=== PATIENT | female | born 1985 | race Caucasian/White ===

== ENCOUNTER 2023-04-15 16:08 | Outpatient (CLI) | payer BC ==
[2023-04-15 17:24] VITALS: BP 127/84; PULSE 108; RESP 16; TEMP 97.6
--- NOTE | 2023-04-30 05:08 | P.MSEPDOC ---
Presenting Problems - Arrival Data Date of Arrival on Unit: 04/15/23 Time of Arrival on Unit: 16:10 Mode of Transport: Ambulatory - Complaint OB-Reason for Admission/Chief Complaint: NST Medical History - Information : 1 Para: 0 Number of Living Children: 0 - Gestational Age Gestational Age by ABIMBOLA (wks/days): 38 Weeks and 6 Days - History Complications: GDM Review of Systems - Review of Systems Constitutional: No problems Breast: No problems ENT: No problems Cardiovascular: No problems Respiratory: No problems Gastrointestinal: No problems Genitourinary: No problems Musculoskeletal: No problems Neurological: No problems Skin: No problems Vital Signs - Temperature Temperature: 97.6 F Temperature Source: Temporal Artery Scan - Pulse Right Sitting Brachial Pulse Rate: 108 Pulse Assessment Method: Automatic Cuff - Respirations Respiratory Rate: 16 Oxygen Delivery Method: Room Air - Blood Pressure Right Arm Sitting Blood Pressure: 127/84 Blood Pressure Mean: 98 Blood Pressure Source: Automatic Cuff Medical Screen Scoring - Assessment - Baby A Baseline FHR: 120 Heart Rate - NICHD Category: Category I (Normal) NST: Reactive Physician Notification - Physician Notified Physician Notified Date: 04/15/23 Physician Notified Time: 17:00 Physician: Tiffany Greene Order Received: Yes (discharge) Maternal Triage Index - Maternal Triage Index Presenting for scheduled procedure w/no complaint: No - Stat/Priority 1 Stat Priority 1: No - Urgent/Priority 2 Urgent Priority 2: No - Prompt/Priority 3 Prompt Priority 3: No - Non-Urgent/Priority 4 Non-Urgent Priority 4: No - Scheduled/Requesting Priority 5 Scheduled/Requesting Priority 5: Yes Criteria Met for Priority 5: NST per order Disposition - Disposition OB Disposition: Discharge to home Discharge Date: 04/15/23 Discharge Time: 17:05 I agree with the RN Medical Screening Exam: Yes Case reviewed; plan agreed upon as documented in EMR&OBIX.: Yes Diagnosis: GESTATIONAL DIABETES MELLITUS IN , DIET CONTROLLED
== END 2023-04-15 17:08 | disposition home or self-care (01) ==
LOC: FBPOP 16:08
PROVIDERS: ATTEND Obstetrics & Gynecology
DX: O24.410 Gestational diabetes mellitus in pregnancy, diet controlled (principal); Z3A.38 38 weeks gestation of pregnancy; Z91.09 Other allergy status, other than to drugs and biological substances; Z88.8 Allergy status to other drugs, medicaments and biological substances; Z91.048 Other nonmedicinal substance allergy status; Z88.1 Allergy status to other antibiotic agents
CPT/HCPCS: 59025

== ENCOUNTER 2023-04-29 09:32 | Outpatient (CLI) | payer BC ==
--- NOTE | 2023-04-29 11:35 | US ---
EXAMINATION TYPE: US OB BPP wo non-stress DATE OF EXAM: 04/29/2023 COMPARISON: Same day OB>14 weeks growth ultrasound CLINICAL INDICATION: Female, 38 years old with history of Post dates; Past due date. TECHNIQUE: Transabdominal (TA). Scoring by the sales enablement lead during real-time assessment. FINDINGS: BPP PARAMETERS: PRESENTATION: Vertex HEART RATE: 146 bpm RHYTHM: Normal YANETH: 15.5 DIAPHRAGM IMAGED: Yes BPP SCORIN. Breathin (1 episode of breathing of 30 second duration in 30 minutes of scanning time) 2. Movement: 2 (at least 3 discrete body movements in 30 minutes) 3. Tone: 2 (1 episode of active flexion/extension of limb) 4. YANETH: 2 (YANETH index > 5cm) IMPRESSION: TOTAL SCORE: 8 / 8. Cardiac activity measures 146 bpm.
--- NOTE | 2023-04-29 11:39 | US ---
EXAMINATION TYPE: US OB >= 14 wk fetus DATE OF EXAM: 04/29/2023 COMPARISON: Same day BPP CLINICAL INDICATION: Female, 38 years old with history of Estimated weight.; Past due date. TECHNIQUE: GESTATIONAL AGE / DATING Physician Established: (40 weeks/6 days) EDC: 04/23/2023 Dates by Current Scan: (39 weeks/2 days) EDC: 05/04/2023 Beta HCG (if available): Not available at this time SURVEY IUP: Single PLACENTA: Anterior left PREVIA: No Previa YANETH: 15.5 cm Normal CERVICAL LENGTH (transabdominal: norm > 3.0cm): 2.7 cm BIOMETRY PRESENTATION: Vertex BPD: 9.2 cm 37 weeks / 1 days HC: 34.7 cm 40 weeks / 2 days AC: 36.4 cm 40 weeks / 2 days FL: 7.8 cm 39 weeks / 6 days ESTIMATED WEIGHT IN GRAMS: 3883 grams ESTIMATED WEIGHT IN LBS/OZ: 8 lbs. 9 oz. WEIGHT PERCENTAGE BASED ON ESTABLISHED DATES: 59.8% HC/AC: 1.0 Normal FL/AC: 31.4 Normal HEART RATE: 146 bpm RHYTHM: Normal Suboptimal due to patient late gestational age. Live IUP measuring 39 weeks 2 days. IMPRESSION: 1. Single intrauterine gestation estimated at 39 weeks 2 days gestation based on current ultrasound m easurements. Cardiac activity measures 146 bpm. 2. Cephalic presentation fetus has an estimated weight of 3883 g.
[2023-04-29 12:22] VITALS: BP 118/80; PULSE 95; RESP 16; TEMP 97.2
--- NOTE | 2023-05-03 06:28 | P.MSEPDOC ---
Presenting Problems - Arrival Data Date of Arrival on Unit: 04/29/23 Time of Arrival on Unit: 09:32 Mode of Transport: Portable - Complaint OB-Reason for Admission/Chief Complaint: Other Comment: Pt sent from office for NST, BPP, OB U/S for EFW r/t post dates. Medical History - Information : 1 Para: 0 Term: 0 : 0 Abortions: Spontaneous or Elective: 0 Number of Living Children: 0 - Gestational Age Gestational Age by ABIMBOLA (wks/days): 40 Weeks and 6 Days - History Complications: GDM Review of Systems - Review of Systems Constitutional: No problems Breast: No problems ENT: No problems Cardiovascular: No problems Respiratory: No problems Gastrointestinal: No problems Genitourinary: No problems Musculoskeletal: No problems Neurological: No problems Skin: No problems Vital Signs - Temperature Temperature: 97.2 F Temperature Source: Temporal Artery Scan - Pulse Right Brachial Pulse Rate: 95 Pulse Assessment Method: Pulse Oximetry - Respirations Respiratory Rate: 16 Oxygen Delivery Method: Room Air O2 Sat by Pulse Oximetry: 98 - Blood Pressure Right Arm Blood Pressure: 118/80 Blood Pressure Mean: 92 Blood Pressure Source: Automatic Cuff Medical Screen Scoring - Assessment - Baby A Baseline FHR: 130 Heart Rate - NICHD Category: Category I (Normal) NST: Reactive Physician Notification - Physician Notified Physician Notified Date: 04/29/23 Physician Notified Time: 11:18 Physician: Marcial Zavala New Order Received: Yes - Notification Comment Comment: Reactive NST, BPP /8. EFW of 8lbs 9oz. YANETH 15.5. Orders recieved to d/c pt to home. Maternal Triage Index - Scheduled/Requesting Priority 5 Scheduled/Requesting Priority 5: Yes Criteria Met for Priority 5: Pt sent from office with written orders per Dr. Zavala for NST, BPP, OB U/S FOR EFW. Disposition - Disposition OB Disposition: Discharge to home Discharge Date: 04/29/23 Discharge Time: 11:25 I agree with the RN Medical Screening Exam: Yes Case reviewed; plan agreed upon as documented in EMR&OBIX.: Yes Diagnosis: RELATED CONDITIONS, UNSPECIFIED, THIRD TRIMESTER
== END 2023-04-29 11:35 ==
LOC: FBPOP 09:32
PROVIDERS: ATTEND Obstetrics & Gynecology
DX: O26.893 Other specified pregnancy related conditions, third trimester (principal); O24.419 Gestational diabetes mellitus in pregnancy, unspecified control; Z88.8 Allergy status to other drugs, medicaments and biological substances; Z91.09 Other allergy status, other than to drugs and biological substances; Z88.1 Allergy status to other antibiotic agents; Z3A.39 39 weeks gestation of pregnancy
CPT/HCPCS: 59025; 76805; 76819

== ENCOUNTER 2023-04-30 03:05 | Inpatient (IN) | payer BC ==
[2023-04-30 03:39] LABS: Glucose,Whole Blood 105 mg/dL (70-110)
[2023-04-30] MEDS ORDERED: OXYTOCIN 10 UNIT/ML 1 ML VIAL IM PRN (03:54)
[2023-04-30] MEDS ORDERED: CARBOPROST TROMETHAMINE 250 MCG/ML 1 ML AMP IM PRN (03:54)
[2023-04-30] MEDS ORDERED: miSOPROStoL 200 MCG TAB PO PRN (03:54)
[2023-04-30] MEDS ORDERED: LIDOCAINE 0.5% (PF) 5 MG/ML (50 ML SDV) SQ PRN (03:54)
[2023-04-30] MEDS ORDERED: TERBUTALINE 1 MG/ML VIAL SQ PRN (03:54)
[2023-04-30] MEDS ORDERED: METHYLERGONOVINE 0.2 MG/ML 1 ML AMP IM PRN (03:54)
[2023-04-30] MEDS ORDERED: TRANEXAMIC 1,000 MG/100ML-NACL 1,000 MG in EMPTY BAG 1 BAG IV PRN (03:54)
[2023-04-30] MEDS ORDERED: OXYTOCIN 30 UNITS/500 ML NS 30 UNIT in SALINE 1 500ML.BAG IV SCH ×2 (04:00→08:57)
[2023-04-30 04:02] LABS: Basophils % (A) 0 %; Eosinophils # (A) 0.1 k/uL (0-0.7); Eosinophils % (A) 1 %; HGB 12.2 gm/dL (11.4-16.0); Lymphocytes # (A) 1.9 k/uL (1.0-4.8); Lymphocytes % (A) 19 %; MCH 30.2 pg (25.0-35.0); MCHC 33.9 g/dL (31.0-37.0); MCV 89.2 fL (80.0-100.0); Mean Platelet Volume 8.3; Monocytes # (A) 0.8 k/uL (0-1.0); Monocytes % (A) 8 %; Neutrophils # (A) 6.8 k/uL (1.3-7.7); Neutrophils % (A) 68 %; Platelet Count 200 k/uL (150-450); RBC 4.04 m/uL (3.80-5.40); RDW 13.3 % (11.5-15.5)
--- NOTE | 2023-04-30 04:54 | P.HPOB ---
History of Present Illness H&P Date: 04/30/23 Chief Complaint: Contractions, spontaneous rupture membranes This is a 38-year-old female 1 para 0 with estimated date of confinement of 04/23/2023, estimated gestational age of 41 weeks, who presents with complaints of spontaneous rupture membranes at approximately 1:30 AM with clear fluid noted. She began feeling contractions shortly after that have become stronger and more regular. Her care has been with Dr. Zavala. care has been complicated by gestational diabetes. She is not on insulin. She has also been on a baby aspirin due to advanced maternal age and gestational diabetes. Her last ultrasound showed an estimated weight of around 8 lbs. 2 oz. per patient. labs: Group B streptococcus-negative GC/chlamydia-negative Trichomonas-negative Hemoglobin-12.4 Hepatitis C-nonreactive HIV-nonreactive Blood type-A+ RPR-nonreactive Hepatitis B surface antigen-negative Rubella-immune 1 hour Glucola-182. Grandma screen-low risk Obstetrical history: 1 para 0 Gynecologic history: History of herpes with no recent outbreaks. History of LEEP procedure 2 Social history: She is single. 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 Review of Systems Constitutional: Denies chills, Denies fever Eyes: denies blurred vision, denies pain Ears, nose, mouth and throat: Denies headache, Denies sore throat Cardiovascular: Denies chest pain, Denies shortness of breath Respiratory: Denies cough Gastrointestinal: Reports abdominal pain (Contractions) Genitourinary: Reports pelvic pain, Reports Musculoskeletal: Reports low back pain Integumentary: Denies pruritus, Denies rash Neurological: Denies numbness, Denies weakness Psychiatric: Denies anxiety, Denies depression Past Medical History Additional Past Medical History / Comment(s): History of cleft palate at ; has one kidney- kidney donor History of Any Multi-Drug Resistant Organisms: None Reported Additional Past Surgical History / Comment(s): Left nephrectomy-donor; LEEP procedure 2; repair of cleft palate as an Past Anesthesia/Blood Transfusion Reactions: No Reported Reaction Past Psychological History: No Psychological Hx Reported Smoking Status: Never smoker Past Alcohol Use History: None Reported Past Drug Use History: None Reported - Past Family History Father Family Medical History: Diabetes Mellitus Medications and Allergies Home Medications Medication Instructions Recorded Confirmed Type Vit No.179/Iron/Folic 1 tab PO DAILY 04/15/23 04/15/23 History [ Tablet] Aspirin [Experiment Aspirin EC] 81 mg PO 04/30/23 History Allergies Allergy/AdvReac Type Severity Reaction Status Date / Time benzalkonium chloride AdvReac Unknown Verified 04/30/23 04:51 cobalt chloride AdvReac Unknown Verified 04/30/23 04:51 metronidazole AdvReac Rash/Hives Verified 04/30/23 03:53 nickel AdvReac Rash/Hives Verified 04/30/23 04:51 Exam Osteopathic Statement: *. No significant issues noted on an osteopathic structural exam other than those noted in the History and Physical/Consult. Intake and Output 04/29/23 04/29/23 04/30/23 14:59 22:59 06:59 Other: Weight 171 kg HEENT: Within normal limits Heart: Regular rate and rhythm Lungs: Clear to auscultation bilaterally Abdomen: Cervix: On admission is 4 and half centimeters. Currently is 5-6 cm/100%/-2 station. Amnisure was positive with clear fluid noted. heart tones: Category 1 Contractions: Every 3-4 minutes Extremities: Negative Homans Results Result Diagrams: 04/30/23 03:50 Assessment and Plan (1) Elderly primigravida Current Visit: No Status: Acute Code(s): O09.519 - SUPERVISION OF ELDERLY PRIMIGRAVIDA, UNSPECIFIED TRIMESTER SNOMED Code(s): 72946077 (2) Gestational diabetes Current Visit: No Status: Acute Code(s): O24.419 - GESTATIONAL DIABETES MELLITUS IN , UNSP CONTROL SNOMED Code(s): 18027222 (3) Postmaturity , 40-42 weeks gestation Current Visit: No Status: Acute Code(s): O48.0 - POST-TERM SNOMED Code(s): 96223662653885 Plan: Admission for active labor. Expectant management. Patient declines any pain medication. I did review her plan. I have advised that she will need IV access and monitoring while in labor. She requests delayed cord clamping and oxytocin and less needed. I have advised her that she will need oxytocin after delivery of the placenta to prevent hemorrhage. She is agreeable to this.
--- NOTE | 2023-04-30 08:39 | P.PROBDLV ---
Vaginal Delivery Note - . Vaginal Delivery Note: The patient progressed to complete dilation after spontaneous rupture membranes with clear fluid. She did not take anything for pain. Once reaching complete, she pushed for about 2 hours and brought infant's head to a crown. With one further push, the infant's head delivered in a left occiput anterior lie followed by the anterior shoulder. Nose and mouth were bulb suctioned at the perineum. Nuchal cord times one was reduced around the baby with delivery of the body. The remainder the easily delivered and was placed on mother's abdomen for skin to skin. Cord was allowed to finish pulsating for approximately 2-3 minutes. Once cord had finish pulsating, the cord was clamped and cut. A viable female is noted with scores of 9 at 1 minute and 9 at 5 minutes. Infant weight is pending at this time. Inspection of the perineum revealed a third-degree perineal laceration. This area was anesthetized with 1% lidocaine and then sutured with 3-0 and 2-0 Vicryl suture in the usual multilayer fashion. The rectal sphincter muscle was brought back together in interrupted fashion with 2-0 Vicryl suture. The remainder of the laceration was repaired in the usual fashion. After approximately half an hour, the placenta did separate and with gentle massage of the uterus and maternal pushing efforts, the placenta delivered intact with a three-vessel cord. There was noted to be a succenturiate lobe that was intact. Uterus initially cont racted fairly well after oxytocin was given but then did become boggy again. A gloved hand was placed within the uterine cavity and no further tissue was obtained. Oxytocin was opened up and uterus did firm with uterine massage. Estimated blood loss is approximately 300 mL's. Both mother and are in stable condition.
[2023-04-30] MEDS ORDERED: diphenhydrAMINE 25 MG CAP PO PRN (08:57)
[2023-04-30] MEDS ORDERED: ZOLPIDEM 5 MG TAB PO PRN (08:57)
[2023-04-30] MEDS ORDERED: LANOLIN CREAM 5 GM TUBE TOPICAL PRN (08:57)
[2023-04-30] MEDS ORDERED: BENZOCAINE/MENTHOL SPRAY 1 GM/SPRAY AEROSOL TOPICAL PRN (08:57)
[2023-04-30] MEDS ORDERED: diphenhydrAMINE 50 MG CAP PO PRN (08:57)
[2023-04-30] MEDS ORDERED: IBUPROFEN 600 MG TAB PO PRN (08:57)
[2023-04-30] MEDS ORDERED: SIMETHICONE 80 MG CHEWABLE PO PRN (08:57)
[2023-04-30] MEDS ORDERED: HYDROCORTISONE 2.5% RECTAL CREAM 30 GM TUBE RECTAL PRN (08:57)
[2023-04-30] MEDS ORDERED: diphenhydrAMINE 50 MG/ML 1 ML VIAL IVP PRN ×2 (08:57)
[2023-04-30] MEDS: ACETAMINOPHEN TAB 325 MG TAB PO PRN ×2 (09:29→18:48)
[2023-04-30] MEDS: LACTATED RINGERS 1,000 ML IV SCH (11:43)
[2023-04-30] MEDS: PRENATAL VIT-IRON-FOLIC ACID 1 EACH TABLET PO SCH (11:43)
[2023-04-30] MEDS ORDERED: IBUPROFEN ORAL SUSP 100 MG/5 ML CUP PO SCH (12:00)
[2023-04-30] MEDS: SENNOSIDES-DOCUSATE SODIUM 1 EACH TAB PO SCH (20:13)
[2023-05-01 00:43] LABS: Basophils % (A) 0 %; Eosinophils # (A) 0.1 k/uL (0-0.7); Eosinophils % (A) 0 %; HCT 23.2 % (34.0-46.0); Lymphocytes # (A) 2.1 k/uL (1.0-4.8); Lymphocytes % (A) 19 %; MCH 30.5 pg (25.0-35.0); MCHC 33.9 g/dL (31.0-37.0); Mean Platelet Volume 8.3; Monocytes % (A) 10 %; Neutrophils # (A) 7.2 k/uL (1.3-7.7); Neutrophils % (A) 66 %; Platelet Count 235 k/uL (150-450); RBC 2.57 m/uL (3.80-5.40); RDW 13.6 % (11.5-15.5); WBC 10.9 k/uL (3.8-10.6)
[2023-05-01 00:47] LABS: HGB 7.9 gm/dL (11.4-16.0)
[2023-05-01] MEDS: ACETAMINOPHEN TAB 325 MG TAB PO PRN ×2 (02:23→12:02)
[2023-05-01] MEDS: LACTATED RINGERS 1,000 ML IV SCH (02:31)
[2023-05-01 07:56] LABS: Basophils # (A) 0.1 k/uL (0-0.2); Basophils % (A) 1 %; Eosinophils # (A) 0.1 k/uL (0-0.7); Eosinophils % (A) 1 %; HCT 22.4 % (34.0-46.0); HGB 7.5 gm/dL (11.4-16.0); Lymphocytes # (A) 2.7 k/uL (1.0-4.8); Lymphocytes % (A) 24 %; MCH 30.8 pg (25.0-35.0); MCHC 33.6 g/dL (31.0-37.0); MCV 91.4 fL (80.0-100.0); Mean Platelet Volume 9.2; Monocytes # (A) 0.7 k/uL (0-1.0); Monocytes % (A) 6 %; Neutrophils # (A) 7.2 k/uL (1.3-7.7); Neutrophils % (A) 65 %; Platelet Count 209 k/uL (150-450); RBC 2.45 m/uL (3.80-5.40); RDW 13.3 % (11.5-15.5); WBC 11.1 k/uL (3.8-10.6)
[2023-05-01 09:27] VITALS: BP 108/66; PULSE 122; RESP 16; TEMP 99.3
[2023-05-01] MEDS: PRENATAL VIT-IRON-FOLIC ACID 1 EACH TABLET PO SCH (11:56)
[2023-05-01] MEDS: SENNOSIDES-DOCUSATE SODIUM 1 EACH TAB PO SCH (11:58)
--- NOTE | 2023-05-01 12:41 | P.DS ---
Providers Date of admission: 04/30/23 03:28 Expected date of discharge: 05/01/23 Attending physician: Marcial Zavala Primary care physician: Stated None - Discharge Diagnosis(es) (1) Elderly primigravida Current Visit: No Status: Acute (2) Gestational diabetes Current Visit: No Status: Acute (3) Postmaturity , 40-42 weeks gestation Current Visit: No Status: Acute Hospital Course: This is a 38-year-old female 1 para 0 at 41 weeks who presented in active labor. She delivered vaginally a viable female infant on 04/30/2023 with scores of 9 at 1 minute and 9 at 5 minutes and infant weight of 8 pounds 4.8 ounces. She did have some significant bleeding during the delivery and shortly after delivery. She did become symptomatic getting up to the bathroom the first time. She was also tachycardic. This did slowly improve and she currently has no significant symptoms getting up to the bathroom on her own. Her bleeding has slowed significantly. Her hemoglobin did drop from 12.2 down to 7.9 approximately 12 hours after delivery. Repeat hemoglobin approximately 8 hours later is stable at 7.5. Patient does desire to go home despite her anemia. She states her symptoms have improved and she can take iron at home. Her lochia is currently very minimal. She is breast-feeding. Pain is fairly well controlled with Tylenol. Vital signs are stable other than she is still tachycardic in the 110s to 120s. Abdomen is soft with fundus firm and nontender. Extremities show negative Homans. Impression is status post vaginal delivery day #1, acute blood loss anemia. Plan is to discharge home later today. Patient is encouraged to continue taking her vitamin along with iron supplement twice a day and to continue eating foods high in iron. She is encouraged to continue stool softeners and Tylenol as needed for pain. Patient cannot take ibuprofen due to her one kidney. She is advised to follow up with Dr. Zavala in the office in 6 weeks. She is advised to call the office if she has any further questions or concerns prior to her appointment time. Procedures: Spontaneous vaginal delivery of a viable male on 04/30/2023 Patient Condition at Discharge: Stable Plan - Discharge Summary New Discharge Prescriptions: New Ferrous Sulfate [Slow Fe] 142 mg PO BID #60 tab Acetaminophen Tab [Tylenol] 650 mg PO Q4HR PRN tab PRN Reason: Mild Pain Or Fever >= 100.5 Continue Vit No.179/Iron/Folic [ Tablet] 1 tab PO DAILY Discontinued Aspirin [[place] Aspirin EC] 81 mg PO Discharge Medication List Vit No.179/Iron/Folic [ Tablet] 1 tab PO DAILY 04/15/23 [History] Acetaminophen Tab [Tylenol] 650 mg PO Q4HR PRN tab 05/01/23 [Rx] Ferrous Sulfate [Slow Fe] 142 mg PO BID #60 tab 05/01/23 [Rx] Follow up Appointment(s)/Referral(s): Marcial Zavala MD [STAFF PHYSICIAN] - 6 Weeks Activity/Diet/Wound Care/Special Instructions: Instructions 1. Do not begin any exercise program for 3 weeks. 2. Do not resume sexual relations for 3 weeks or longer if uncomfortable. 3. You may take tub baths or showers at any time. 4. You may use tampons if desired after 3 weeks. 5. Keep the area of episiotomy (stitches) clean and dry. 6. If you are not nursing, wear a good fitting, supportive bra during the day and limit fluid intake for at least 1 week to prevent breast engorgement. 7. Call the office, [phone], within the next week to make appointment for your 6 week checkup if it has not already been made. 8. Report any of the following occurrences to the doctor promptly: a. Heavy, excessive bleeding b. Chills, fever c. Burning or frequency of urination d. Pain or redness and breasts if nursing e. Increasing pain or swelling in episiotomy (stitches). In addition to the above instructions, the following additional should be followed: 1. No heavy lifting or straining (exercising) until after 6 week checkup. 2. Keep abdominal incision clean and dry: You may wear a dressing if more comfortable. 3. Make office appointment for 10 days after going home or as instructed by her doctor. Discharge Disposition: HOME SELF-CARE
== END 2023-05-01 15:10 | disposition home or self-care (01) | DRG 768 ==
LOC: FBPOP 03:05 → 4FBP 03:28
PROVIDERS: ADMIT Obstetrics & Gynecology; ATTEND Obstetrics & Gynecology
PROC: 10E0XZZ Delivery of Products of Conception, External Approach (ICD-10-PCS; principal; 2023-04-30)
PROC: 0DQR0ZZ Repair Anal Sphincter, Open Approach (ICD-10-PCS; 2023-04-30)
DX: O24.429 Gestational diabetes mellitus in childbirth, unspecified control (principal); Z37.0 Single live birth; D62 Acute posthemorrhagic anemia; O70.20 Third degree perineal laceration during delivery, unspecified; O99.02 Anemia complicating childbirth; O48.0 Post-term pregnancy; O69.81X0 Labor and delivery complicated by cord around neck, without compression, not applicable or unspecified; Z3A.41 41 weeks gestation of pregnancy; Z83.3 Family history of diabetes mellitus
CPT/HCPCS: 85025; 86850; 86900; 86901

== ENCOUNTER 2023-05-06 14:56 | Emergency (ER) | payer BC ==
[2023-05-06 15:29] VITALS: BP 134/88; PULSE 104; RESP 20; TEMP 97.7
--- NOTE | 2023-05-06 15:37 | ED ---
Extremity Problem HPI - General Source: patient, RN notes reviewed Mode of arrival: ambulatory Limitations: no limitations <Noemi Rose - Last Filed: 05/14/23 22:22> - History of Present Illness MD Complaint: extremity pain, extremity swelling -: hour(s) Location: lower extremity -: Yes arthralgia Radiation: none Severity scale (1-10): 3 Quality: aching Consistency: constant Improves with: nothing Worsens with: nothing <Geoff Oneil - Last Filed: 06/16/23 02:58> - General Chief complaint: Extremity Problem,Nontraumatic Stated complaint: post delivery issue Time Seen by Provider: 05/06/23 15:36 - History of Present Illness Initial comments: Patient is a 38-year-old female presented ER with a chief complaint of leg and forearm pain. Patient recently had a vaginal delivery. Patient is worried she has a blood clot in her leg because it is extremely painful. Patient denies any shortness of breath, fevers, chills, night sweats. (Noemi Rose) This is a 38-year-old female to the ER for evaluation of back pain arm pain. Patient was concerned for blood clot here in the ER but at this time does not want further evaluation feels fine (Geoff Oneil) - Related Data Home Medications Medication Instructions Recorded Confirmed Vit No.179/Iron/Folic 1 tab PO DAILY 04/15/23 04/15/23 [ Tablet] Previous Rx's Medication Instructions Recorded Acetaminophen Tab [Tylenol] 650 mg PO Q4HR PRN tab 05/01/23 Ferrous Sulfate [Slow Fe] 142 mg PO BID #60 tab 05/01/23 Allergies Allergy/AdvReac Type Severity Reaction Status Date / Time benzalkonium chloride AdvReac Unknown Verified 05/06/23 15:10 cobalt chloride AdvReac Unknown Verified 05/06/23 15:10 metronidazole AdvReac Rash/Hives Verified 05/06/23 15:10 nickel AdvReac Rash/Hives Verified 05/06/23 15:10 Review of Systems ROS Other: All systems not noted in ROS Statement are negative. <Noemi Rose - Last Filed: 05/14/23 22:22> ROS Other: All systems not noted in ROS Statement are negative. <Geoff Oneil - Last Filed: 06/16/23 02:58> ROS Statement: Those systems with pertinent positive or pertinent negative responses have been documented in the HPI. Past Medical History Past Medical History: No Reported History Additional Past Medical History / Comment(s): History of cleft palate at ; has one kidney- kidney donor History of Any Multi-Drug Resistant Organisms: None Reported Additional Past Surgical History / Comment(s): Left nephrectomy-donor; LEEP procedure 2; repair of cleft palate as an infant Past Anesthesia/Blood Transfusion Reactions: No Reported Reaction Past Psychological History: No Psychological Hx Reported Smoking Status: Never smoker Past Alcohol Use History: None Reported Past Drug Use History: None Reported - Past Family History Father Family Medical History: Diabetes Mellitus <Noemi Rose - Last Filed: 05/14/23 22:22> General Exam Limitations: no limitations <Noemi Rose - Last Filed: 05/14/23 22:22> General appearance: alert, in no apparent distress Head exam: Present: atraumatic, normocephalic, normal inspection Eye exam: Present: normal appearance, PERRL, EOMI. Absent: scleral icterus, conjunctival injection, periorbital swelling ENT exam: Present: normal exam, mucous membranes moist Neck exam: Present: normal inspection. Absent: tenderness, meningismus, lymphadenopathy Respiratory exam: Present: normal lung sounds bilaterally. Absent: respiratory distress, wheezes, rales, rhonchi, stridor Cardiovascular Exam: Present: regular rate, normal rhythm, normal heart sounds. Absent: systolic murmur, diastolic murmur, rubs, gallop, clicks GI/Abdominal exam: Present: soft, normal bowel sounds. Absent: distended, tenderness, guarding, rebound, rigid Extremities exam: Present: normal inspection, full ROM, normal capillary refill. Absent: tenderness, pedal edema, joint swelling, calf tenderness Back exam: Present: normal inspection Neurological exam: Present: alert, oriented X3, CN II-XII intact Psychiatric exam: Present: normal affect, normal mood Skin exam: Present: warm, dry, intact, normal color. Absent: rash <Geoff Oneil - Last Filed: 06/16/23 02:58> - General Exam Comments Initial Comments: Visual Physical Exam Vital signs reviewed General: Well-appearing, nontoxic, no acute distress. Head: Normocephalic, atraumatic Eyes: PERRLA, EOMI ENT: Airway patent Chest: Nonlabored breathing Skin: No visual rash, normal skin tone Neuro: Alert and oriented 3 Musculoskeletal: No gross abnormalities (Noemi Rose) Course <Geoff Oneil - Last Filed: 06/16/23 02:58> Vital Signs 05/06/23 15:05 Temperature 97.7 F Pulse Rate 104 H Respiratory 20 Rate Blood Pressure 134/88 O2 Sat by Pulse 98 Oximetry - Reevaluation(s) Reevaluation #1: Medical records reviewed (Geoff Oneil) Reevaluation #2: Patient symptoms unchanged prefers discharge (Geoff Oneil) Reevaluation #3: Patient informed of results and questions answered (Geoff Oneil) Reevaluation #4: Was pt. sent in by a medical professional or institution (, PA, MARKETING ANALYTICS SPECIALIST, urgent care, hospital, or penitentiary...) When possible be specific @ -no Did you speak to anyone other than the patient for history (EMS, parent, family, police, friend...)? What history was obtained from this source @ -no Did you review nursing and triage notes (agree or disagree)? Why? @ -agree Are old charts reviewed (outside hosp., previous admission, EMS record, old EKG, old radiological studies, urgent care reports/EKG's, penitentiary records)? Report findings @ -yes Differential Diagnosis (chest pain, altered mental status, abdominal pain women, abdominal pain men, vaginal bleeding, weakness, fever, dyspnea, syncope, headache, dizziness, GI bleed, back pain, seizure, CVA, palpatations, mental health, musculoskeletal)? @ -prior EKG interpreted by me (3pts min.). @ -no X-rays interpreted by me (1pt min.). @ -no CT interpreted by me (1pt min.). @ -no U/S interpreted by me (1pt. min.). @ -yes Negative for acute disease What testing was considered but not performed or refused? (CT, X-rays, U/S, labs)? Why? @ -none What meds were considered but not given or refused? Why? @ -none Did you discuss the management of the patient with other professionals (professionals i.e. , PA, MARKETING ANALYTICS SPECIALIST, lab, RT, psych nurse, social work manager, quarter lining smoother, teacher, senior major gifts officer, pillowcase cutter)? Give summary @ -no Was smoking cessation discussed for >3mins.? @ -no Was critical care preformed (if so, how long)? @ -no Were there social determinants of health that impacted care today? How? (Homelessness, low income, unemployed, alcoholism, drug addiction, transportation, low edu. Level, literacy, decrease access to med. care, intermediate, rehab)? @ -none Was there de-escalation of care discussed even if they declined (Discuss DNR or withdrawal of care, Hospice)? DNR status @ -no What co-morbidities impacted this encounter? (DM, HTN, Smoking, COPD, CAD, Cancer, CVA, ARF, Chemo, Hep., AIDS, mental health diagnosis, sleep apnea, morbid obesity)? @ -none Was patient admitted / discharged? Hospital course, mention meds given and route, prescriptions, significant lab abnormalities, going to OR and other pertinent info. @ -38 female to ER for evaluation of post delivery pain, no acute causes, patient feels improved here in the ER will be discharged home Discharge Undiagnosed new problem with uncertain prognosis? @ -no Drug Therapy requiring intensive monitoring for toxicity (Heparin, Nitro, Insulin, Cardizem)? @ -no Were any procedures done? @ -no Diagnosis/symptom? @ - Acute, or Chronic, or Acute on Chronic? @ -Acute Uncomplicated (without systemic symptoms) or Complicated (systemic symptoms)? @ -Complicated Side effects of treatment? @ -no Exacerbation, Progression, or Severe Exacerbation? @ -exacerbation Poses a threat to life or bodily function? How? (Chest pain, [place], [place], pneumonia, PE, COPD, DKA, ARF, appy, cholecystitis, CVA, Diverticulitis, Homicidal, Suicidal, threat to staff... and all critical care pts) @ -no (Geoff Oneil) Medical Decision Making - Lab Data Result diagrams: 05/06/23 17:25 05/06/23 17:25 <Noemi Rose - Last Filed: 05/14/23 22:22> - Lab Data Result diagrams: 05/06/23 17:25 05/06/23 17:25 - Radiology Data Radiology results: report reviewed (Ultrasound venous duplex is negative for acute disease), image reviewed <Geoff Oneil - Last Filed: 06/16/23 02:58> - Medical Decision Making I performed the quick note portion of the exam. Electronically signed by Noemi Rose PA-C (Noemi Rose) 38 female to ER for evaluation of post delivery pain, no acute causes, patient feels improved here in the ER will be discharged home (Geoff Oneil) - Lab Data Lab Results 05/06/23 05/06/23 Range/Units 17:25 17:25 WBC 7.9 (3.8-10.6) k/uL RBC 3.00 L (3.80-5.40) m/uL Hgb 9.2 L D (11.4-16.0) gm/dL Hct 27.4 L (34.0-46.0) % MCV 91.4 (80.0-100.0) fL MCH 30.7 (25.0-35.0) pg MCHC 33.7 (31.0-37.0) g/dL RDW 14.8 (11.5-15.5) % Plt Count 415 (150-450) k/uL MPV 7.5 Sodium 137 (137-145) mmol/L Potassium 4.3 (3.5-5.1) mmol/L Chloride 106 (98-107) mmol/L Carbon Dioxide 19 L (22-30) mmol/L Anion Gap 12 mmol/L BUN 16 (7-17) mg/dL Creatinine 0.87 (0.52-1.04) mg/dL Est GFR (CKD-EPI)AfAm >90 (>60 ml/min/1.73 sqM) Est GFR (CKD-EPI)NonAf 85 (>60 ml/min/1.73 sqM) Glucose 104 H (74-99) mg/dL Calcium 9.0 (8.4-10.2) mg/dL Total Bilirubin 0.2 (0.2-1.3) mg/dL AST 41 H (14-36) U/L ALT 56 H (4-34) U/L Alkaline Phosphatase 141 H (38-126) U/L Total Protein 6.6 (6.3-8.2) g/dL Albumin 3.7 (3.5-5.0) g/dL Disposition <Noemi Rose - Last Filed: 05/14/23 22:22> Is patient prescribed a controlled substance at d/c from ED?: No Time of Disposition: 19:00 <Geoff Oneil - Last Filed: 06/16/23 02:58> Clinical Impression: Leg pain, Leg edema Disposition: HOME SELF-CARE Condition: Undetermined Instructions (If sedation given, give patient instructions): Leg Pain (ED) Referrals: None,Stated [Primary Care Provider] - 1-2 days
[2023-05-06] MEDS: KETOROLAC 15 MG/ML 1 ML VIAL IM STA (17:29)
[2023-05-06 17:54] LABS: HCT 27.4 % (34.0-46.0); MCH 30.7 pg (25.0-35.0); MCHC 33.7 g/dL (31.0-37.0); MCV 91.4 fL (80.0-100.0); Mean Platelet Volume 7.5; Platelet Count 415 k/uL (150-450); RDW 14.8 % (11.5-15.5); WBC 7.9 k/uL (3.8-10.6)
[2023-05-06 18:00] LABS: ALT 56 U/L (4-34); AST 41 U/L (14-36); African American GFR (CKD) >90 (>60 ml/min/1.73 sqM); Albumin 3.7 g/dL (3.5-5.0); Alkaline Phosphatase 141 U/L (38-126); Anion Gap 12 mmol/L; Blood Urea Nitrogen 16 mg/dL (7-17); Carbon Dioxide 19 mmol/L (22-30); Chloride 106 mmol/L (98-107); Glucose 104 mg/dL (74-99); Non-African American GFR(CKD) 85 (>60 ml/min/1.73 sqM); Potassium 4.3 mmol/L (3.5-5.1); Sodium 137 mmol/L (137-145); Total Bilirubin 0.2 mg/dL (0.2-1.3); Total Protein 6.6 g/dL (6.3-8.2)
[2023-05-06 18:20] LABS: HGB 9.2 gm/dL (11.4-16.0)
--- NOTE | 2023-05-06 18:33 | US ---
EXAMINATION TYPE: US venous doppler duplex LE RT DATE OF EXAM: 05/06/2023 6:11 PM COMPARISON: NONE CLINICAL INDICATION: Female, 38 years old with history of pain; Right leg pain SIDE PERFORMED: Right TECHNIQUE: The lower extremity deep venous system is examined utilizing real time linear array sonog sushma with graded compression, doppler sonography and color-flow sonography. VESSELS IMAGED: Common Femoral Vein Deep Femoral Vein Greater Saphenous Vein * Femoral Vein Popliteal Vein Small Saphenous Vein * Proximal Calf Veins (* superficial vessels) Right Leg: Negative for DVT IMPRESSION: Right lower extremity ultrasound negative for deep venous thrombosis.
== END 2023-05-06 19:04 | disposition home or self-care (01) ==
LOC: EC 14:56
DX: M79.604 Pain in right leg (principal); Z88.8 Allergy status to other drugs, medicaments and biological substances; Z88.1 Allergy status to other antibiotic agents
CPT/HCPCS: 36415; 80053; 85027; 99284